=== PATIENT | female | born 1965 | race African-American/Black ===

== ENCOUNTER 2017-02-14 12:20 | Emergency (ER) | payer MEDICAID ==
[~2017-02-14] VITALS: Ht 175.3 cm; Wt 104.0 kg
[~2017-02-14 12:20] MED LIST: IBUP-1509 PO
[2017-02-14 14:42] LABS: BASOPHILS % 1.2 % (0.0-2.0); EOSINOPHILS % 1.8 % (0.0-5.0); HEMOGLOBIN. 12.2 g/dL (12.0-16.0); LYMPHOCYTES % 34.1 % (20.0-50.0); MEAN CORPUSCULAR HEMOGLOBIN 23.3 pg (28.0-32.0); MEAN CORPUSCULAR VOLUME 72.6 fL (81.0-99.0); MEAN PLATELET VOLUME 10.5 fl (7.4-10.4); NEUTROPHILS % 52.9 % (40.0-76.0); PLATELET 175 x1000/uL (130-400); RED BLOOD CELL COUNT 5.23 mill/uL (4.2-5.4); RED CELL DISTRIBUTION WIDTH 15.9 % (11.6-14.6)
[2017-02-14 14:53] LABS: CARBON DIOXIDE 30 mEq/L (21-32); CHLORIDE 107 mEq/L (98-107); TROPONIN I < 0.02 ng/mL (0.00-0.04)
[2017-02-14 15:11] LABS: HCG SCREEN NEGATIVE
[2017-02-14] MEDS ORDERED: SODIUM CHLORIDE 0.9% 1,000 ML IV ONE (15:28)
[2017-02-14 15:32] LABS: CLARITY URINE CLEAR (CLEAR); COLOR URINE YELLOW (YELLOW); GLUCOSE URINE NEGATIVE (NEGATIVE); KETONES URINE NEGATIVE (NEGATIVE); LEUKOCYTE ESTERASE URINE TRACE (NEGATIVE); NITRITE URINE NEGATIVE (NEGATIVE); OCCULT BLOOD URINE NEGATIVE (NEGATIVE); PH URINE 5.5 (4.5-8.0); PROTEIN URINE NEGATIVE (NEGATIVE); SPECIFIC GRAVITY URINE 1.021 (1.005-1.030); UROBILINOGEN URINE 0.2 E.U./dL (0.2-1.0)
[2017-02-14 17:30] VITALS: BP 102/79
== END 2017-02-14 18:25 | disposition home or self-care (01) ==
LOC: ER 13:51
DX: I10 Essential (primary) hypertension (principal); I44.0 Atrioventricular block, first degree; F17.210 Nicotine dependence, cigarettes, uncomplicated
CPT/HCPCS: 36415; 70450; 80053; 81001; 83690; 84484; 84703; 85025; 93005; 96360; 96361; 99285; J7040; Z7610; J7030

== ENCOUNTER 2017-07-05 11:55 | Emergency (ER) | payer MEDICAID ==
[~2017-07-05] VITALS: Ht 175.3 cm; Wt 111.0 kg
[~2017-07-05 11:55] MED LIST changes: -IBUP-1509 PO; +IBUP-2028 PO
[2017-07-05] MEDS ORDERED: ONDANSETRON HCL 4MG/2ML VIAL IV STA (14:42)
[2017-07-05] MEDS ORDERED: SODIUM CHLORIDE 0.9% 1,000 ML IV ONE (14:42)
[2017-07-05 15:15] LABS: BASOPHILS % 0.6 % (0.0-2.0); CHLORIDE 108 mEq/L (98-107); EOSINOPHILS % 2.3 % (0.0-5.0); HEMATOCRIT. 36.3 % (36.0-48.0); HEMOGLOBIN. 11.7 g/dL (12.0-16.0); MEAN CORPUSCULAR VOLUME 74.4 fL (81.0-99.0); MEAN PLATELET VOLUME 9.9 fl (7.4-10.4); MONOCYTES % 11.1 % (2.0-8.0); PLATELET 187 x1000/uL (130-400); RED BLOOD CELL COUNT 4.87 mill/uL (4.2-5.4); RED CELL DISTRIBUTION WIDTH 16.2 % (11.6-14.6)
[2017-07-05 15:21] LABS: CARBON DIOXIDE 29 mEq/L (21-32)
[2017-07-05 20:35] LABS: CLARITY URINE CLOUDY (CLEAR); COLOR URINE YELLOW (YELLOW); GLUCOSE URINE NEGATIVE (NEGATIVE); KETONES URINE NEGATIVE (NEGATIVE); LEUKOCYTE ESTERASE URINE 2+ (NEGATIVE); NITRITE URINE NEGATIVE (NEGATIVE); OCCULT BLOOD URINE NEGATIVE (NEGATIVE); PH URINE 5.5 (4.5-8.0); PROTEIN URINE 1+ (NEGATIVE); SPECIFIC GRAVITY URINE 1.025 (1.005-1.030); UROBILINOGEN URINE 0.2 E.U./dL (0.2-1.0)
[2017-07-05] MEDS ORDERED: AMLODIPINE 5MG TABLET PO ONE (21:00)
[2017-07-05 22:00] VITALS: BP 172/88
== END 2017-07-05 22:19 | disposition home or self-care (01) ==
LOC: ER 11:55
DX: A08.4 Viral intestinal infection, unspecified (principal); N39.0 Urinary tract infection, site not specified; I10 Essential (primary) hypertension; E78.00 Pure hypercholesterolemia, unspecified; F17.200 Nicotine dependence, unspecified, uncomplicated
CPT/HCPCS: 36415; 80053; 81001; 83690; 85025; 85610; 96361; 96374; 99284; J2405; J7030

== ENCOUNTER 2022-07-04 11:59 | Emergency (ER) | payer MEDICARE, MEDICAID ==
[~2022-07-04] VITALS: Ht 172.7 cm; Wt 109.0 kg
[~2022-07-04 11:59] MED LIST changes: +FURO-151 MT; +LOSA50TA3 PO; +METO-539 PO; +POTA-204 PO
[2022-07-04 13:18] LABS: BASOPHILS % 1.1 % (0.0-2.0); HEMATOCRIT. 35.9 % (36.0-48.0); HEMOGLOBIN. 11.2 g/dL (12.0-16.0); LYMPHOCYTES % 27.2 % (20.0-50.0); MEAN CORPUSCULAR HEMOGLOBIN 24.2 pg (28.0-32.0); MEAN PLATELET VOLUME 10.4 fl (7.4-10.4); MONOCYTES % 10.1 % (2.0-8.0); NEUTROPHILS % 60.6 % (40.0-76.0); PLATELET 278 x1000/uL (130-400); RED BLOOD CELL COUNT 4.61 mill/uL (4.2-5.4)
[2022-07-04 13:23] LABS: CHLORIDE 107 mEq/L (98-107)
[2022-07-04] MEDS ORDERED: FUROSEMIDE 20MG/2ML VIAL IVP ONE (14:00)
[2022-07-04] MEDS: NITROGLYCERIN 0.4MG TABLET SL SL PRN ×2 (17:34→18:09)
[2022-07-04] MEDS ORDERED: FUROSEMIDE 20MG/2ML VIAL IVP NR ×2 (18:30→18:45)
[2022-07-04 18:55] VITALS: BP 183/114
== END 2022-07-04 18:54 | disposition short-term general hospital (02) ==
LOC: ER 11:59 → CANBEDREQ 19:09
DX: I48.91 Unspecified atrial fibrillation (principal); I11.0 Hypertensive heart disease with heart failure; I50.9 Heart failure, unspecified; D64.9 Anemia, unspecified; R77.8 Other specified abnormalities of plasma proteins; Z20.822 Contact with and (suspected) exposure to COVID-19
CPT/HCPCS: 36415; 71045; 80053; 83880; 84484; 85025; 87426; 93005; 96374; 96376; 99285; C9803; J1940

== ENCOUNTER 2024-08-11 16:30 | Emergency (ER) | payer BC, MEDICAID ==
[~2024-08-11] VITALS: Ht 172.7 cm; Wt 122.0 kg
[~2024-08-11 16:30] MED LIST changes: +AMLO10TA80 MT; +APIX5TAB PO; +ASPI-1497 MT; +CARV12.545 MT; +CEFP100T8 MT; +HYDR25TA78 PO; -IBUP-2028 PO; -LOSA50TA3 PO; -METO-539 PO
[2024-08-11 16:39] VITALS: O2SAT 97
[2024-08-11] MEDS ORDERED: NAPR-1176 MT (19:23)
[2024-08-11] MEDS ORDERED: LIDO700A15 TP (19:23)
[2024-08-11] MEDS: KETOROLAC 15MG/ML VIAL IM ONE (20:06)
[2024-08-11 20:26] VITALS: BP 150/89; PULSE 79; RESP 20; TEMP 36.44736; O2SAT 98
== END 2024-08-11 20:36 | disposition home or self-care (01) ==
LOC: ER 16:44
DX: S89.81XA Other specified injuries of right lower leg, initial encounter (principal); E78.00 Pure hypercholesterolemia, unspecified; I11.0 Hypertensive heart disease with heart failure; I50.9 Heart failure, unspecified; Z79.899 Other long term (current) drug therapy; X58.XXXA Exposure to other specified factors, initial encounter; Y93.89 Activity, other specified; Y92.89 Other specified places as the place of occurrence of the external cause; Y99.8 Other external cause status
CPT/HCPCS: 99283; 73564; L1830